=== PATIENT | female | born 1960 | race Two or more races ===

== ENCOUNTER 2021-04-21 13:05 | Outpatient (CLI) | payer OTHER | END 2021-04-21 13:10 | disposition home or self-care (01) | LOC: RAD 13:05 | PROVIDERS: ATTEND Chiropractor | DX: M54.6 Pain in thoracic spine (principal); M54.59 Other low back pain; M25.562 Pain in left knee; M25.571 Pain in right ankle and joints of right foot; M54.2 Cervicalgia ==

== ENCOUNTER 2021-04-23 11:53 | Outpatient (CLI) | payer OTHER | END 2021-04-23 12:00 | disposition home or self-care (01) | LOC: LAB 11:53 | PROVIDERS: ATTEND Chiropractor | DX: Z00.00 Encounter for general adult medical examination without abnormal findings (principal) ==

== ENCOUNTER 2021-07-27 10:13 | Outpatient (CLI) | payer OTHER | END 2021-07-27 12:08 | disposition home or self-care (01) | LOC: LAB 10:13 | DX: E11.65 Type 2 diabetes mellitus with hyperglycemia (principal); E11.21 Type 2 diabetes mellitus with diabetic nephropathy; E78.5 Hyperlipidemia, unspecified; E55.9 Vitamin D deficiency, unspecified; E53.9 Vitamin B deficiency, unspecified; R53.82 Chronic fatigue, unspecified; E83.52 Hypercalcemia ==

== ENCOUNTER 2021-07-27 11:08 | Outpatient (CLI) | payer OTHER | END 2021-07-27 11:13 | disposition home or self-care (01) | LOC: SONOGRAMA 11:08 | DX: K75.81 Nonalcoholic steatohepatitis (NASH) (principal) ==

== ENCOUNTER 2021-11-25 10:11 | Outpatient (CLI) | payer OTHER | END 2021-11-25 10:17 | disposition home or self-care (01) | LOC: LAB 10:11 | DX: E11.65 Type 2 diabetes mellitus with hyperglycemia (principal); E11.21 Type 2 diabetes mellitus with diabetic nephropathy; E78.5 Hyperlipidemia, unspecified; E55.9 Vitamin D deficiency, unspecified; E53.9 Vitamin B deficiency, unspecified; R53.82 Chronic fatigue, unspecified; E83.52 Hypercalcemia ==

== ENCOUNTER 2022-04-05 09:44 | Outpatient (CLI) | payer OTHER | END 2022-04-05 09:45 | disposition home or self-care (01) | LOC: LAB 09:44 | DX: E11.65 Type 2 diabetes mellitus with hyperglycemia (principal); E11.21 Type 2 diabetes mellitus with diabetic nephropathy; E78.5 Hyperlipidemia, unspecified; E55.9 Vitamin D deficiency, unspecified; E53.9 Vitamin B deficiency, unspecified; R53.82 Chronic fatigue, unspecified; E83.52 Hypercalcemia ==

== ENCOUNTER → 2023-04-26 10:02 | Outpatient (CLI) | payer OTHER ==
[2023-04-26 11:12] LABS: HEMATOCRIT 37.7 % (36.0-45.00); HEMOGLOBIN 12.9 g/dL (12.0-15.00); MEAN CELL VOLUME 90.4 fL (80.00-100.00); MEAN CORPUSCULAR HGB CONC 34.3 g/dl (32.0-36.0); PLATELET COUNT 254 K/uL (150-450); RED BLOOD COUNT 4.17 M/uL (4.00-6.00); RED CELL DISTRIBUTION WIDTH 14.1 % (11.5-14.5)
[2023-04-26 11:49] LABS: ALBUMIN 3.8 gm/dL (3.4-5.0); BILIRUBIN TOTAL 0.71 mg/dL (0.3-1.2); CALCIUM 9.2 mg/dL (8.5-10.1); CHOL HDL RATIO 2.9 (0-5.0); CREATININE SERUM 0.85 mg/dL (0.55-1.02); GFR 67.55; GLOBULINA 3.3 G/DL (2.4-3.5); POTASSIUM 3.88 mEq/L (3.5-5.1); T4 FREE 0.93 NG/ML (0.76-1.46); TOTAL PROTEIN 7.1 gm/dL (6.4-8.2); TSH 2.88 uIU/mL (0.358-3.74)
[2023-04-26 14:37] LABS: VITAMIN D3 25 HYDROXY 36.74 ng/ml (30-120)
== END | disposition home or self-care (01) ==
LOC: LAB 10:02
DX: E11.65 Type 2 diabetes mellitus with hyperglycemia (principal); E11.21 Type 2 diabetes mellitus with diabetic nephropathy; E78.5 Hyperlipidemia, unspecified; E53.9 Vitamin B deficiency, unspecified; E83.52 Hypercalcemia